=== PATIENT | male | born 1995 | race Hispanic/Latino ===

== ENCOUNTER 2016-11-18 13:04 | Emergency (ER) | payer OTHER ==
[2016-11-18 13:04] VITALS: BMI 26.6
[2016-11-18 13:19] VITALS: BP 125/75; PULSE 105; RESP 19; TEMP 98.8; O2SAT 97
[2016-11-18] MEDS ORDERED: Naproxen 550 mg Tab PO STA (13:27)
--- NOTE | 2016-11-18 14:50 | ED PDOC ---
Arrival/HPI - General Chief Complaint: Upper Extremity Problem/Injury Time Seen by Provider: 11/18/16 13:27 Historian: Patient - History of Present Illness Narrative History of Present Illness (Text): 11/18/16 14:46 Patient reports injuring his L hand when he fell and tried to break his fall by extending his hand at midnight early this AM. Otherwise: (-) other injury, (- ) numbness. Patient is L hand dominant. PMD Zoe Past Medical History - Provider Review Nursing Documentation Reviewed: Yes - Infectious Disease Hx of Infectious Diseases: None - Neurological Hx Seizures: Yes - Psychiatric Hx Substance Use: Yes - Surgical History Other/Comment: right ear tube implant - Anesthesia Hx Anesthesia: Yes Hx Anesthesia Reactions: No Hx Malignant Hyperthermia: No Family/Social History - Physician Review Nursing Documentation Reviewed: Yes Family/Social History: No Known Family HX Smoking Status: Current Some Days Smoker Hx Alcohol Use: Yes Frequency of alcohol use: Socially Hx Substance Use: Yes Substance used: tanya, marijuana Allergies/Home Meds Allergies/Adverse Reactions: Allergies cefazolin Allergy (Verified 11/18/16 13:19) RASH Review of Systems - Review of Systems Constitutional: Normal. absent: Fatigue, Weight Change, Fevers Musculoskeletal: Normal, Arthralgias. absent: Back Pain, Neck Pain Skin: Normal. absent: Rash, Pruritis, Skin Lesions Physical Exam - Physical Exam Narrative Physical Exam (Text): 11/18/16 14:47 GENERAL APPEARANCE: Patient is awake, alert, oriented x 3, in mild painful distress. SKIN: Warm, (-) rash, (-) lesions. UPPER EXTREMITY: (+) Tenderness, (+) moderate swelling, (+) ecchymosis of the L hand over the 1st & 2nd metacarpal; (-) crepitus, (-) deformity. Tendon function intact. (-) distal neurovascular deficit. 2 point discrimination intact. Remainder of hand, digits and wrist: (-) injury. Vital Signs Temp Pulse Resp BP Pulse Ox 11/18/16 13:14 98.8 F 105 H 19 125/75 97 Medical Decision Making ED Course and Treatment: 11/18/16 14:48 21 yo M sustained injury to the L hand. XR L hand ordered, given naprosyn po. XR L hand: (+) comminuted fracture of the distal 2nd metacarpal, no dislocation , as read by PA Patient advised that official radiology read of XR is still pending and will call the patient if there is any discrepancy within 24 hours. X-ray results discussed with the patient in great detail. Orthoglass radial gutter splint applied by PA. Neurovascular intact post splint application. Sling applied to the left arm by PA. Based on history, exam and diagnostic results plan will be for outpatient follow -up with orthopedic referral provided. Patient states he fully agrees with and understands discharge instructions. States that he agrees with the plan and disposition. Verbalized and repeated discharge instructions and plan. I have given the patient opportunity to ask any additional questions. Follow up with primary care physician / ortho referral provided in 1-2 days without fail. Advised to take medication as prescribed. Return to the emergency room at any time for any new or worsening symptoms. - RAD Interpretation Radiology Orders: 11/18/16 13:43 HAND LEFT 3 VIEWS ROUTINE [RAD] Stat - Medication Orders Current Medication Orders: Discontinued Medications Naproxen (Anaprox Ds) 550 mg PO ONCE STA Stop: 11/18/16 13:28 Last Admin: 11/18/16 13:53 Dose: 550 MG - PA / CONSTRUCTION EQUIPMENT OPERATOR / Resident Statement MD/DO has reviewed & agrees with the documentation as recorded. Disposition/Present on Arrival - Present on Arrival Any Indicators Present on Arrival: No History of DVT/PE: No History of Uncontrolled Diabetes: No Urinary Catheter: No History of Decub. Ulcer: No History Surgical Site Infection Following: None - Disposition Have Diagnosis and Disposition been Completed?: Yes Diagnosis: Hand fracture, left Disposition: HOME/ ROUTINE Disposition Time: 14:50 Patient Plan: Discharge Condition: GOOD Discharge Instructions (ExitCare): Hand Fracture (ED) Print Language: FRENCH Additional Instructions: Thank you for letting us take care of you today. You were treated for left hand fracture. The emergency medical care you received today was directed at your acute symptoms. If you were prescribed any medication, please fill it and take as directed. It may take several days for your symptoms to resolve. Return to the Emergency Department if your symptoms worsen, do not improve, or if you have any other problems. Please contact your doctor in 2 days for re-evaluation and follow up / or call one of the physicians/clinics you have been referred to that are listed on the Patient Visit Information form that is included in your discharge packet. Bring any paperwork you were given at discharge with you along with any medications you are taking to your follow up visit. Our treatment cannot replace ongoing medical care by a primary care provider (PCP) outside of the emergency department. Thank you for allowing the [facility] team to be part of your care today. Prescriptions: Naproxen 500 mg PO BID #30 tab Referrals: Angelito Enriquez MD [Primary Care Provider] - Follow up with primary Arturo Quinones III, MD [Medical Doctor] - Follow up with primary Forms: WORK NOTE, SCHOOL NOTE
--- NOTE | 2016-11-18 15:08 | RAD ---
PROCEDURE: Left hand dated 11/18/2016 HISTORY: trauma COMPARISON: None. FINDINGS: BONES: Current study reveals a fracture of the distal aspect 2nd metacarpal left hand with slight palmar angulation of the distal fragment. Surrounding soft tissue swelling. No other fractures are identified. . JOINTS: Joint spaces preserved. . . No osteoarthritic changes. SOFT TISSUES: As above. OTHER FINDINGS: None. IMPRESSION: There is a fracture traversing the distal aspect left 2nd metacarpal with mild palmar angulation of the distal fragment.
== END 2016-11-18 15:24 | disposition home or self-care (01) ==
LOC: ED 13:04
DX: S62.301A Unspecified fracture of second metacarpal bone, left hand, initial encounter for closed fracture (principal); W19.XXXA Unspecified fall, initial encounter

== ENCOUNTER 2017-01-27 02:48 | Emergency (ER) | payer OTHER ==
--- NOTE | 2017-01-27 02:52 | ED PDOC ---
Arrival/HPI - General Time Seen by Provider: 01/27/17 02:52 Historian: Patient - History of Present Illness Narrative History of Present Illness (Text): 01/27/17 02:52 Jeff Coronel is a 21 year old male who presents to the Emergency department under arrest complaining of claustrophobia. Patient states he felt claustrophobic while in police custody and notes he felt much better following arrival to the ER. Patient states he wishes to stay here and rest. Patient denies any suicidal ideation, homicidal ideation, chest pain, shortness of breath, nausea, vomiting, diarrhea,or any other complaints. Time/Duration: Other (tonight) Symptom Onset: Gradual Symptom Course: Improving Activities at Onset: Rest, Light Context: Other (police custody) Past Medical History - Provider Review Nursing Documentation Reviewed: Yes - Infectious Disease Hx of Infectious Diseases: None - Neurological Hx Seizures: Yes - Psychiatric Hx Substance Use: Yes - Surgical History Other/Comment: right ear tube implant - Anesthesia Hx Anesthesia: Yes Hx Anesthesia Reactions: No Hx Malignant Hyperthermia: No Family/Social History - Physician Review Nursing Documentation Reviewed: Yes Family/Social History: No Known Family HX Smoking Status: Current Some Days Smoker Hx Alcohol Use: Yes Hx Substance Use: Yes Substance used: tanya, marijuana Allergies/Home Meds Allergies/Adverse Reactions: Allergies cefazolin Allergy (Verified 01/27/17 02:56) RASH Home Medications: Home Meds Medication Instructions Recorded Confirmed No Known Home Med 01/27/17 01/27/17 Physical Exam - Physical Exam Narrative Physical Exam (Text): - Review of Systems Constitutional: Normal. absent: Fatigue, Weight Change, Fevers Eyes: Normal ENT: Normal Respiratory: Normal absent: SOB, Cough, Sputum Cardiovascular: Normal absent: Chest pain, Palpitations, Syncope Gastrointestinal: Normal absent: Abdominal pain, Diarrhea, Nausea, Vomiting Genitourinary: Normal. absent: Dysuria, Frequency, Hematuria Musculoskeletal: Normal. absent: Arthralgias, Back Pain, Neck Pain Skin: Normal Neurological: Normal absent: Focal Weakness Endocrine: Normal Hemo/Lymphatic: Normal Psychiatric: denies SI/HI, denies depressive thoughts - Physical exam Patient appears age appropriate, speaking full sentences without difficulty - Systems Exam Head: Present: Atraumatic, Normocephalic Pupils: Present: PERRL Extraocular Muscles: Present: EOMI Conjunctiva: Present: Normal Mouth: Present: Moist Mucous Membranes Neck: Present: Normal Range of Motion. No: MIDLINE TENDERNESS, Paraspinal Tenderness Respiratory/Chest: Present: Clear to Auscultation, Good Air Exchange. No: Respiratory Distress, Accessory Muscle Use, Tachypneic Cardiovascular: Present: Regular Rate and Rhythm, Normal S1, S2, Peripheral Pulses Present. No: Murmurs Abdomen: Present: Normal Bowel Sounds, No: Tenderness, Peritoneal Signs, Rebound, Guarding, Distention Back: Present: Normal Inspection. No: Midline Tenderness, Paraspinal Tenderness Upper Extremity: Present: Normal Inspection. No: Cyanosis, Edema Lower Extremity: Present: Normal Inspection. No: Edema Neurological: Present: GCS=15, Speech Normal, cranial nerves II through XII fully intact with no cerebellar abnormality, neuro-sensory fully intact. No focal neurological deficits. Skin: Present: Warm, Dry, Normal Color. No: Rashes Lymphatic: Present: OX3, NI, NC Psychiatric: Present: Alert, Oriented x 3, Normal Insight, Normal Concentration Vital Signs Reviewed: Yes Vital Signs Temp Pulse Resp BP Pulse Ox 01/27/17 03:00 97.8 F 95 H 15 127/77 98 Temperature: Afebrile Blood Pressure: Normal Pulse: Regular Respiratory Rate: Normal Appearance: Positive for: Well-Appearing, Non-Toxic, Comfortable Pain Distress: None Mental Status: Positive for: Alert and Oriented X 3 Medical Decision Making ED Course and Treatment: 01/27/17 02:52 Impression: 21 year old male under police custody complaining of claustrophobia. Plan: -- Reassess and disposition Progress Notes: Pt states he feels well and does not want to be seen by PES. Pt in no acute distress. Patient is stable for discharge. Pt medically cleared for incarceration. - Scribe Statement The provider has reviewed the documentation as recorded by the Scribe Mell Espinoza All medical record entries made by the Scribe were at my direction and personally dictated by me. I have reviewed the chart and agree that the record accurately reflects my personal performance of the history, physical exam, medical decision making, and the department course for this patient. I have also personally directed, reviewed, and agree with the discharge instructions and disposition. Disposition/Present on Arrival - Present on Arrival Any Indicators Present on Arrival: No History of DVT/PE: No History of Uncontrolled Diabetes: No Urinary Catheter: No History Surgical Site Infection Following: None - Disposition Have Diagnosis and Disposition been Completed?: Yes Diagnosis: Medical clearance for incarceration Disposition: RELEASED IN POLICE CUSTODY Disposition Time: 03:03 Patient Plan: Discharge Condition: GOOD Discharge Instructions (ExitCare): Generalized Anxiety Disorder (ED) Additional Instructions: MEDICALLY CLEARED FOR RELEASE INTO POLICE CUSTODY PLEASE RETURN TO THE EMERGENCY DEPARTMENT FOR NEW OR WORSENING SYMPTOMS. RETURN RIGHT AWAY IF YOU CANNOT FOLLOW UP WITH YOUR PRIMARY CARE DOCTOR, CLINIC, OR SPECIALIST IN 1-2 DAYS. Referrals: Teresa Garner MD [Staff Provider] - Follow up with primary
[2017-01-27 02:57] VITALS: BMI 25.8
[2017-01-27 03:01] VITALS: BP 127/77; PULSE 95; RESP 15; TEMP 97.8; O2SAT 98
== END 2017-01-27 03:54 ==
LOC: ED 02:48
DX: Z02.89 Encounter for other administrative examinations (principal)